=== PATIENT | male | born 1975 | race Caucasian/White ===

== ENCOUNTER → 2016-10-07 | Outpatient (CLI) | payer OTHER ==
--- NOTE | 2016-10-07 10:35 | XR ---
EXAMINATION TYPE: XR ankle complete RT DATE OF EXAM ORDERED: 10/07/2016 10:30 AM HISTORY: Twisting injury. COMPARISON: None. FINDINGS: No fracture, dislocation or ankle joint effusion is seen. There is some calcification at t he insertion site of the Achilles tendon. IMPRESSION: NO ACUTE OSSEOUS LESION.
--- NOTE | 2016-10-07 10:35 | XR ---
EXAMINATION TYPE: XR foot complete RT DATE OF EXAM ORDERED: 10/07/2016 10:30 AM HISTORY: Twisting injury. COMPARISON: None. FINDINGS: No fracture, dislocation or other acute osseous lesion is seen. IMPRESSION: NO ACUTE OSSEOUS LESION.
== END | disposition home or self-care (01) ==
LOC: RADXRMAIN 10:12
PROVIDERS: ATTEND Emergency Medicine
DX: S93.401A Sprain of unspecified ligament of right ankle, initial encounter (principal); S93.601A Unspecified sprain of right foot, initial encounter

== ENCOUNTER → 2016-10-12 | Outpatient (CLI) | payer OTHER ==
--- NOTE | 2016-10-13 01:23 | MR ---
EXAMINATION TYPE: MR ankle RT wo con DATE OF EXAM: 10/12/2016 9:59 PM COMPARISON: NONE HISTORY: Slipped and sprained rt ankle Standard multiplanar, multisequence MRI departmental protocol Multiplanar, multisequence images of the right ankle were acquired. FINDINGS: The Achilles tendon is intact. Plantar fascia is intact. There is a mild ankle joint effusi on. There is subcutaneous edema over the lateral malleolus. The medial and lateral flexor tendons of the ankle are intact. Extensor tendons are intact. There is no evidence for fracture. Joint spaces ar e fairly normal. The collateral ligaments appear intact. IMPRESSION: There is mild lateral subcutaneous edema. There is a mild to moderate ankle joint effusion but no fra cture seen and no evidence of ligamentous tear.
== END | disposition home or self-care (01) ==
LOC: RADMRIMAIN 21:14
PROVIDERS: ATTEND Emergency Medicine
DX: S93.401D Sprain of unspecified ligament of right ankle, subsequent encounter (principal); S93.601D Unspecified sprain of right foot, subsequent encounter; M25.471 Effusion, right ankle